=== PATIENT | female | born 1975 | race Hispanic/Latino ===

== ENCOUNTER 2018-09-03 20:00 | Emergency (ER) | payer OTHER | END 2018-09-03 21:56 | disposition home or self-care (01) | LOC: EDH 20:00 | DX: J02.9 Acute pharyngitis, unspecified (principal); Z91.048 Other nonmedicinal substance allergy status ==

== ENCOUNTER 2019-01-26 15:19 | Observation (INO) | payer MEDICAID ==
[~2019-01-26] VITALS: Ht 172.7 cm; Wt 99.8 kg
[2019-01-26 16:03] LABS: APPEARANCE,URINE Clear (CLEAR); BILIRUBIN,URINE Negative (NEGATIVE); COLOR,URINE Yellow (YELLOW); GLUCOSE, URINE (UA) Negative (NEGATIVE); KETONES,URINE Negative (NEGATIVE); LEUKOCYTE ESTERASE ,URINE Negative (NEGATIVE); NITRATE,URINE Negative (NEGATIVE); OCCULT BLOOD,URINE Large (NEGATIVE); PH,URINE 6.5 (5.0-8.0); PROTEIN,URINE Trace mg/dL (NEGATIVE)
[2019-01-26 16:12] LABS: BACTERIA,URINE Few /HPF (None Seen); MUCUS,URINE Rare LPF (None Seen); SQUAMOUS EPITHELIAL CELL,UR Moderate /HPF (0-2); WBC,URINE 0-1 /HPF (0-1)
[2019-01-26 17:54] LABS: AMPHET/METH SCREEN,URINE NEGATIVE (NEGATIVE); BARBITURATE SCREEN, URINE NEGATIVE (NEGATIVE); BENZODIAZEPINES SCREEN,URINE NEGATIVE (NEGATIVE); CANNABINOID SCREEN,URINE NEGATIVE (NEGATIVE); COCAINE SCREEN,URINE NEGATIVE (NEGATIVE); OPIATE SCREEN,URINE NEGATIVE (NEGATIVE); PHENCYCLIDINE SCREEN,URINE NEGATIVE (NEGATIVE)
[2019-01-26 18:26] VITALS: BP 112/56
== END 2019-01-26 18:43 | disposition home or self-care (01) ==
LOC: EDH 15:19 → LDH 15:35
DX: O36.8120 Decreased fetal movements, second trimester, not applicable or unspecified (principal); O46.92 Antepartum hemorrhage, unspecified, second trimester; Z3A.26 26 weeks gestation of pregnancy; Z79.899 Other long term (current) drug therapy
CPT/HCPCS: 80305; 81001; 99284; G0378 ×3

== ENCOUNTER 2021-06-03 01:44 | Emergency (ER) | payer MEDICAID, OTHER ==
[~2021-06-03] VITALS: Ht 172.7 cm; Wt 95.3 kg
[2021-06-03 02:07] VITALS: BP 146/72
== END 2021-06-03 02:08 | disposition home or self-care (01) ==
LOC: EDH 01:44
DX: S00.451A Superficial foreign body of right ear, initial encounter (principal); E66.9 Obesity, unspecified; Z68.30 Body mass index [BMI] 30.0-30.9, adult; Z88.5 Allergy status to narcotic agent; X58.XXXA Exposure to other specified factors, initial encounter; Y93.89 Activity, other specified; Y92.89 Other specified places as the place of occurrence of the external cause; Y99.8 Other external cause status
CPT/HCPCS: 99282

== ENCOUNTER 2023-11-01 21:34 | Emergency (ER) | payer BC ==
[~2023-11-01] VITALS: Ht 172.7 cm; Wt 100.2 kg
[2023-11-01] MEDS: HYDROCODONE/ACETAMINOPHEN 5/325 MG TAB PO ONE (22:13)
[2023-11-01] MEDS: FLUORESCEIN SODIUM 1 STRIP STRIP OP SCH (22:13)
[2023-11-01] MEDS: TETRACAINE HCL 0.5% 4 ML OPHTH SOLN OP SCH (22:13)
[2023-11-01 22:29] VITALS: BP 131/75; PULSE 76; RESP 18; O2SAT 99
[2023-11-01] MEDS ORDERED: ERYTHROMYCIN BASE 0.5% OPHTH OINT 1 GM TUBE OU SCH (22:30)
[2023-11-01] MEDS ORDERED: IBUP-2077 PO (22:31)
[2023-11-01] MEDS ORDERED: ERYT1OIN7 OP (22:31)
[2023-11-01] MEDS: ERYTHROMYCIN BASE 0.5% OPHTH OINT 1 GM TUBE ONE (22:42)
== END 2023-11-01 22:41 | disposition home or self-care (01) ==
LOC: EDH 21:34
DX: S05.02XA Injury of conjunctiva and corneal abrasion without foreign body, left eye, initial encounter (principal); X58.XXXA Exposure to other specified factors, initial encounter; Y93.89 Activity, other specified; Y92.89 Other specified places as the place of occurrence of the external cause; Y99.8 Other external cause status